=== PATIENT | male | born 1985 | race Two or more races ===

== ENCOUNTER 2023-05-16 09:35 | Emergency (ER) | payer OTHER ==
[~2023-05-16] VITALS: Ht 182.9 cm; Wt 77.6 kg
[2023-05-16 09:43] VITALS: BP 128/84; PULSE 68; RESP 16; TEMP 97.6; O2SAT 99
== END 2023-05-16 15:18 | disposition home or self-care (01) ==
LOC: ER 09:35
DX: N50.811 Right testicular pain (principal)
CPT/HCPCS: 76870